=== PATIENT | female | born 1965 | race Caucasian/White ===

== ENCOUNTER → 2017-06-13 | Outpatient (CLI) | payer OTHER ==
[~2017-06-13] VITALS: Ht 175.3 cm; Wt 158.8 kg
[~2017-06-13] MED LIST: AMLODIPINE BESYL5 MG PO; BENICAR40 MG PO; BREO ELLIPTA 21 EACH IH; FISH OIL 1,2001 EAC4 PO; FOLIC ACID1 MG PO; GLUCOSAMINE &1 EAC1 PO; LASIX 20 MG TAB20 MG PO; LEVOTHYROXINE0.05 MG PO; MULTIVITAMINS1 EAC7 PO; OMEPRAZOLE 20 M20 M1 PO; PROAIR HFA8.5 GM INH; SINGULAIR 10 MG10 M1 PO; SUPER B COMPLE150 MG PO; ULORIC40 MG PO; VITAMIN D32000 UNI1 PO; WELLBUTRIN XL300 MG PO; ZOCOR20 MG PO
--- NOTE | ~2017-06-13 | S ---
[facility] [place] [address] SURGICAL PATH RPT PROCEDURE Name: SHANNAN YANES Sebas Room #: REG [facility] Phillip.#: [id number] Admission: 06/13/17 Date of : 61 Discharge: Report #: [id number] Path Case #: [id number] PATHOLOGY REPORT COLLECTION DATE: 06/13/2017 RECEIVED DATE: 06/13/2017 SUBMITTING PHYS: Dr. Nba Reyes OTHER PHYS: Dr. Rachel Whittaker SPECIMEN(S) RECEIVED: A.Polyp at transverse colon * * * * * * * * * * * * FINAL DIAGNOSIS: Polyp, at transverse colon, endoscopic biopsy: - Hyperplastic polyp. - Negative for dysplasia. (IUV:mgr; 06/15/2017) PATHOLOGIST: Charlene Mccoy M.D. REPORT ELECTRONICALLY SIGNED BY: Charlene Mccoy M.D. DATE/TIME: 06/15/2017 14:19 * * * * * * * * * * * * GROSS PATHOLOGY: Received in formalin labeled "Shannan Yanes, polyp at transverse colon," is a 0.7 x 0.5 x 0.3 cm polypoid piece of zapata soft tissue. The margin is inked and the tissue is sectioned perpendicular to the margin and submitted in its entirety in cassette A1. (SARKIS; 06/14/2017) CLINICAL HISTORY: Colon screening INITIAL CPT CODE(S): A; 26224 Professional services performed by [facility] at [facility] [address] , [place] [address] Technical services performed by [facility] at [address] [place] [address], [address] [address]. [facility] [address] [place] [address] SURGICAL PATH RPT PROCEDURE Name: SHANNAN YANES Room #: REG EVIN Sanders#: [id number] Admission: 06/13/17 Date of : 61 Discharge: Report #: [id number] Path Case #: [id number] [place] [id number] [address] [address] PHONE: [phone] DIRECTOR: César Wiggins M.D. * * * END OF REPORT * * *
== END | disposition home or self-care (01) ==
LOC: GI 08:35
DX: Z12.11 Encounter for screening for malignant neoplasm of colon (principal); K63.5 Polyp of colon; K57.30 Diverticulosis of large intestine without perforation or abscess without bleeding; K64.8 Other hemorrhoids; I10 Essential (primary) hypertension; E78.00 Pure hypercholesterolemia, unspecified; J45.909 Unspecified asthma, uncomplicated; K21.9 Gastro-esophageal reflux disease without esophagitis; E07.9 Disorder of thyroid, unspecified; Z90.710 Acquired absence of both cervix and uterus; Z98.890 Other specified postprocedural states; Z79.899 Other long term (current) drug therapy
CPT/HCPCS: 62110; 62900